=== PATIENT | male | born 1990 | race Caucasian/White ===

== ENCOUNTER 2017-07-29 06:21 | Emergency (ER) | payer OTHER ==
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
[2017-07-29 07:32] VITALS: BP 125/80; PULSE 83; RESP 18; TEMP 98.2; O2SAT 95
== END 2017-07-29 07:46 | disposition home or self-care (01) ==
DX: M54.5 Low back pain (principal); M25.551 Pain in right hip